=== PATIENT | female | born 1990 | race Caucasian/White ===

== ENCOUNTER → 2024-03-26 14:58 | Outpatient (REF) | payer BC, SELFPAY | LOC: RAD 14:58 | DX: O26.91 Pregnancy related conditions, unspecified, first trimester (principal) | CPT/HCPCS: 76801; 76817 ==

== ENCOUNTER → 2024-05-20 10:46 | Outpatient (REF) | payer BC, SELFPAY | LOC: PNTC 10:46 | PROVIDERS: ATTENDING PHYSICIAN Obstetrics & Gynecology | DX: O09.529 Supervision of elderly multigravida, unspecified trimester (principal); O34.219 Maternal care for unspecified type scar from previous cesarean delivery | CPT/HCPCS: 76805 ==

== ENCOUNTER 2024-11-01 07:43 | Inpatient (IN) | payer BC, SELFPAY ==
--- NOTE | 2024-10-31 23:38 | HPS.HSE ---
Family Physician
-
Family Physician: * NONE
Chief Complaint
-
LTCS for arrest dilation 7 cm; hysteroscopy D&C polypectomy, excision endometriosis
History of Present Illness
33-year-old -0-1-1 female with EDC 11/04/2024 presents at 39.4 weeks for elective repeat section. History significant for prior LTCS for arrest of dilation at 7 cm. That child weighed 10 pounds at . She declines ODILON AC/.
course: Advanced maternal age, hypothyroidism, past history of gestational hypertension-has been taking low-dose aspirin.
Medical History
Past Medical History
Past Medical History: Reports Hypothyroidism
Additional Past Medical History:
Past medical history: History of eating disorder/anorexia, hypothyroidism, endometriosis, HSV, anxiety, acne, allergic rhinitis, vitamin deficiency
Past Surgical History: Reports
Additional Past Surgical History:
Past surgical history: Primary LTCS (arrest dilation at 7 cm / 10 pound baby), hysteroscopy D&C polypectomy, excision endometriosis.
Social History
Tobacco: Non-smoker
Alcohol: None
Drug: None
Personal:
Living: With Family
Family History
Family History: Other (Mother osteoporosis, hypothyroidism)
Allergies / Home Medications
Allergies reflects when Allergies were last updated in [facility].
Home Medications with original date entered in [facility]
Allergy/Medication List:
Chlorhexidine-rash
Review of Systems
-
History Source: Patient
Constitutional: Reports No Symptoms
EENT: Reports No Symptoms
Respiratory: Reports No Symptoms
Cardiac: Reports No Symptoms
Abdomen/GI: Reports No Symptoms
: Reports No Symptoms
Musculoskeletal: Reports No Symptoms
Skin: Reports No Symptoms
Neurological: Reports No Symptoms
Endocrine: Reports No Symptoms
Hematologic/Lymphatic: Reports No Symptoms
Psych: Reports No Symptoms
Physical Exam
Vital Signs
Blood pressure 102/70, height 5'7', weight 161, BMI 24.3
Physical Exam
General: Well Developed
HEENT: NormoCephalic
Respiratory: Clear
Cardiac: S1/S2 and Regular Rhythm
Breast: N/A
GI: Soft, Non Tender, Non Distended and Normal Bowel Sounds
Rectal: Deferred by Provider
Genito-urinary: Deferred by me
Musculoskeletal: No Clubbing and No Cyanosis
Skin: Warm and Dry
Neuro: Awake, Alert, Oriented and Nonfocal/grossly intact
Psych: Calm
Laboratory Results
-
labs: A+, antibody screen negative, hepatitis B surface antigen negative, HIV nonreactive, rubella immune, HCV antibody negative, 1 hour GTT 123, RPR nonreactive, GBS negative. Negative bile acids 10/02/2024. aFP negative, NIPS negative,
Pap 03/28/2024 negative cotest.
Labs to be ordered on day of admission
Data Reviewed
-
Lab Data: Labs Reviewed by me
Impression/Plan
-
IMPRESSION: 39.4 weeks
Prior LTCS for arrest of dilation. Declines ODILON AC/.
Advanced maternal age.
PLAN: Admit for delivery, scheduled 11/01/2024.
She was counseled about option for ODILON AC/ but she declines. She was counseled about the section delivery. She was advised about risk, benefits, alternatives. She was counseled about the risks which include but are not limited to
infection, bleeding, injury to any internal tissues/structures/organs, potential risk for thromboembolic events, risk for additional procedures not listed, some of which may prolong hospitalization, recovery and follow-up. Risk for return to OR
reviewed. risk was reviewed. Anticipated length of procedure, recovery, restrictions discussed. Questions were answered to her satisfaction. Blood transfusion consent with its inherent risks were discussed. Informed consent has been
obtained.
--- NOTE | 2024-11-01 | HPS.HSE ---
Family Physician
-
Family Physician: * NONE
Chief Complaint
-
Presents for elective repeat LTCS
History of Present Illness
33-year-old -0-1-1 female presents at 39.4 wks for elective repeat LTCS. Prior history significant for primary LTCS for arrest of dilation at 7 cm. Baby weighed 10 pounds. She declines ODILON AC/.
course significant for AMA, history of hypothyroidism. Past history gestational hypertension . She has been taking low-dose aspirin. History of HSV-has been prescribed Valtrex 500 mg twice daily starting at 36 weeks
prophylactically.
Medical History
Past Medical History
Past Medical History: Reports Hypothyroidism
Additional Past Medical History:
endometriosis, anorexia, PP depression, PP gestational HTN, hx HSV, hypothyroidism
Past Surgical History: Reports
Additional Past Surgical History:
Prior LTCS for arrest dilation, hysteroscopy D&C polypectomy, excision endometriosis
Social History
Tobacco: Non-smoker
Alcohol: None
Drug: None
Personal:
Living: With Family
Family History
Family History: Not pertinent and Other (mother hypothyroidism, osteoporosis)
Allergies / Home Medications
Allergies reflects when Allergies were last updated in [facility].
Home Medications with original date entered in [facility]
Allergy/Medication List:
chlorhexidine-rash
Review of Systems
-
History Source: Patient
A 12 point ROS was completed and negative except as noted: Yes
Physical Exam
Vital Signs
BP 102/70, Ht 5 ft 7in, BMI 24.3 Wt 161lbs
Physical Exam
General: Well Developed and No Apparent Distress
HEENT: NormoCephalic and Moist mucous membranes
Respiratory: Clear
Cardiac: S1/S2 and Regular Rhythm
Breast: Deferred by me
GI: Soft, Non Tender and Non Distended
Rectal: Deferred by Provider
Genito-urinary: Deferred by me
Musculoskeletal: Clubbing and Cyanosis
Skin: Warm and Dry
Neuro: Awake, Alert and Oriented
Hematologic/Lymphatic: No Lymphadenopathy
Psych: Calm and Intact Judgment/Insight
Laboratory Results
-
A positive, ab screen neg, Rubella immune, RPR/HCV/HIV-negative; Hepbsag-neg, 1hr gtt normal, pap neg cotest 03/2024, GBS neg, AFP negative, NIPT negative.
Impression/Plan
-
IMPRESSION:
39.4 wks
Prior LTCS declined TOLAC/
GBS negative
Hx HSV- taking valtrex prophylactically, no active lesions.
AMA
Hx PP depression
Hx GHTN
PLAN:
Admit for Csection. Counseled about benefits, risk, alternatives. She declines ODILON AC/. She was counseled about the procedure risks which include but are not limited to infection, bleeding, injury to any internal tissues/organ/structures,
potential need for additional procedures not listed which could prolong hospital stay and/or recovery. She was counseled about increased risk for thromboembolic events, possible need for return to the OR, risk. Anticipated recovery,
restrictions, postoperative follow-up reviewed. Blood transfusion consent with its inherent risks were discussed. Questions were answered to her satisfaction and informed consent has been obtained.
[2024-11-01 07:52] VITALS: BP 111/68; BMI 24.3
[2024-11-01] MEDS: ANCEF 10 IV (08:34)
[2024-11-01] MEDS: BICITRA 30 ML PO (08:34)
[2024-11-01] MEDS: TYLENOL 975 MG PO (08:34)
[2024-11-01 08:40] LABS: Hematocrit 37.2 % (37.0-47.0); Hemoglobin 12.5 g/dL (12.0-16.0); Mean Corp Hgb Conc. 33.6 g/dL (33.0-37.0); Mean Corpuscular Volume 91.9 fL (81.0-99.0); Platelet Count 222 10^3/uL (130-400); Red Cell Dist. Width 13.2 % (11.5-14.5)
[2024-11-01] MEDS: MORPHINE SULFATE 4 MG IV (12:30)
[2024-11-01] MEDS: MORPHINE SULFATE 2 MG IV (13:27)
[2024-11-01] MEDS: TORADOL 15 MG IV ×2 (15:41→22:03)
[2024-11-01] MEDS: BENADRYL 25 MG IV (15:48)
[2024-11-01] MEDS: COLACE 100 MG PO (20:30)
[2024-11-01] MEDS: MYLICON 80 MG PO (22:02)
[2024-11-02] MEDS: TYLENOL 650 MG PO ×3 (02:49→23:02)
[2024-11-02] MEDS: TORADOL 15 MG IV ×2 (03:51→08:09)
[2024-11-02] MEDS: MYLICON 80 MG PO (03:52)
[2024-11-02 04:52] LABS: Hematocrit 27.6 % (37.0-47.0); Hemoglobin 9.2 g/dL (12.0-16.0); Mean Corp Hgb Conc. 33.3 g/dL (33.0-37.0); Mean Corpuscular Volume 93.2 fL (81.0-99.0); Platelet Count 158 10^3/uL (130-400); Red Cell Dist. Width 13.1 % (11.5-14.5)
[2024-11-02] MEDS: SYNTHROID 100 MCG PO (06:45)
[2024-11-02] MEDS: COLACE 100 MG PO ×2 (08:09→19:50)
[2024-11-02] MEDS: FEOSOL 325 MG PO (08:09)
[2024-11-02] MEDS: LEXAPRO 20 MG PO (08:09)
[2024-11-02] MEDS: MOTRIN 600 MG PO ×2 (14:10→20:29)
[2024-11-02] MEDS: ROXICODONE 5 MG PO ×2 (15:16→19:50)
[2024-11-03] MEDS: ROXICODONE 5 MG PO ×2 (00:03→09:15)
[2024-11-03] MEDS: MOTRIN 600 MG PO ×2 (02:35→08:30)
[2024-11-03] MEDS: SYNTHROID 100 MCG PO (06:00)
[2024-11-03] MEDS: TYLENOL 650 MG PO (06:07)
[2024-11-03] MEDS: FEOSOL 325 MG PO (08:46)
[2024-11-03] MEDS: COLACE 100 MG PO (08:47)
[2024-11-03] MEDS: LEXAPRO 20 MG PO (08:47)
--- NOTE | 2024-11-03 10:29 | W.DS.TRANS ---
DC Summary - Physician
-
Discharge Instructions:
Discharge Diagnosis/Procedures section
Instructions:
Stand-Alone Forms: LDRP Delivery
Changes to Home Medications: No
Discharge Medications:
DC Medications w/original date entered in [facility]
escitalopram oxalate 20 mg tablet 20 mg PO DAILY 11/01/24
prenat.vits,sonali,gcl-awze-ohvgw 1 tab PO DAILY 11/01/24
acetaminophen 325 mg tablet 650 mg (2 x 325 mg) PO Q4HPRN PRN mild pain #0 tabs 11/03/24
docusate sodium 100 mg capsule 100 mg PO BID #0 caps 11/03/24
ferrous sulfate 325 mg (65 mg iron) tablet (FeroSul) 325 mg PO DAILY #0 tabs 11/03/24
ibuprofen 600 mg tablet 600 mg PO Q6HPRN PRN cramps #30 tabs 11/03/24
levothyroxine 100 mcg tablet 100 mcg PO DAILY @ 0600 #0 tabs 11/03/24
oxycodone 5 mg tablet 5 mg PO Q4HPRN PRN moderate pain #8 tabs 11/03/24
sennosides 8.6 mg tablet (Elissa-stacie) 17.2 mg (2 x 8.6 mg) PO HSPRN PRN constipation #0 tabs 11/03/24
simethicone 80 mg chewable tablet 80 mg PO TIDPRN PRN flatulence #0 tabs 11/03/24
Home Medication Changes
Pending Results: Yes (pathology report)
Total time spent discharging patient (in min): 20
[2024-11-05 12:56] LABS: Syphilis/T. pallidum Ab Reflex Negative (Negative)
== END 2024-11-03 12:29 | disposition home or self-care (01) | DRG 788 ==
LOC: LDRP 07:43
PROVIDERS: ADMITTING PHYSICIAN Obstetrics & Gynecology
PROC: 10D00Z1 Extraction of Products of Conception, Low, Open Approach (ICD-10-PCS; 2024-11-02)
DX: O65.5 Obstructed labor due to abnormality of maternal pelvic organs (principal); O34.211 Maternal care for low transverse scar from previous cesarean delivery; Z3A.39 39 weeks gestation of pregnancy; Z37.0 Single live birth; L91.0 Hypertrophic scar; L98.9 Disorder of the skin and subcutaneous tissue, unspecified; K66.0 Peritoneal adhesions (postprocedural) (postinfection); D50.0 Iron deficiency anemia secondary to blood loss (chronic); O99.03 Anemia complicating the puerperium; F53.0 Postpartum depression; O99.345 Other mental disorders complicating the puerperium; O99.72 Diseases of the skin and subcutaneous tissue complicating childbirth
CPT/HCPCS: 36415; 85027; 86780; 86850; 86900; 86901; 88304

== ENCOUNTER 2024-11-04 15:24 | Observation (INO) | payer BC, SELFPAY ==
[2024-11-04 15:29] VITALS: BP 111/68; BMI 24.3
[2024-11-04 16:08] LABS: Hematocrit 29.8 % (37.0-47.0); Hemoglobin 9.9 g/dL (12.0-16.0); Mean Corp Hgb Conc. 33.2 g/dL (33.0-37.0); Mean Corpuscular Volume 93.4 fL (81.0-99.0); Platelet Count 223 10^3/uL (130-400); Red Cell Dist. Width 13.7 % (11.5-14.5)
[2024-11-04 16:28] LABS: ALT (SGPT) < 10 U/L (0-35); AST (SGOT) 26 U/L (14-36); Albumin 3.2 g/dl (3.5-5.0); Alkaline Phosphatase 124 U/L (38-126); Blood Urea Nitrogen 6 mg/dl (7-17); Calcium 8.8 mg/dl (8.4-10.2); Carbon Dioxide 24 mmol/L (22-30); Chloride 111 mmol/L (98-107); Estimated Creatinine Clearance > 125 ml/min; Glucose 89 mg/dl (70-99); Potassium 4.4 mmol/L (3.5-5.1); Sodium 137 mmol/L (135-145); Total Protein 6.1 g/dl (6.3-8.2); eGFR > 60.00
[2024-11-04] MEDS: MOTRIN 600 MG PO (19:51)
== END 2024-11-04 21:52 | disposition home or self-care (01) ==
LOC: LDRP 15:24
PROVIDERS: ADMITTING PHYSICIAN Obstetrics & Gynecology; CONSULT PHYSICIAN Anesthesiology
DX: O89.4 Spinal and epidural anesthesia-induced headache during the puerperium (principal); Y84.4 Aspiration of fluid as the cause of abnormal reaction of the patient, or of later complication, without mention of misadventure at the time of the procedure
CPT/HCPCS: 80053; 85027